=== PATIENT | male | born 1975 | race Caucasian/White ===

== ENCOUNTER 2017-04-28 00:40 | Emergency (ER) | payer BC, OTHER ==
[~2017-04-28] VITALS: Ht 182.9 cm; Wt 105.9 kg
[~2017-04-28 00:40] MED LIST: FLAGYL500 MG PO; HYDROCODON-ACE1 EAC7 PO; INDOCIN50 MG PO; LORTAB 5-500 T1 EACH PO; NAPROXEN500 MG PO; NEXIUM20 MG PO; NOHOMEMEDS
[2017-04-28 00:48] VITALS: BP 125/82
[2017-04-28 01:07] LABS: HEMATOCRIT 43.3 % (38.0-50.0); MCH 29.9 PG (29.0-34.0); MCHC 33.9 G/DL (30.0-36.0); MEAN PLAT.VOLUME 11.5 uM^3 (9.0-12.4); PLATELET COUNT 212 K/uL (156-360); RBC DIS.WIDTH-CV 13.1 % (11.8-14.6); RBC DIS.WIDTH-SD 42.2 % (39-53); RED BLOOD COUNT 4.92 M/uL (4.00-5.50); WHITE BLOOD COUNT 8.9 K/uL (4.1-10.2)
[2017-04-28 01:16] LABS: CHLORIDE 104 mEq/L (99-109); SODIUM 139 mEq/L (136-147)
[2017-04-28 01:18] LABS: GLUCOSE 98 mg/dL (70-99)
[2017-04-28 01:19] LABS: ANION GAP 12 MEQ/L (2-14)
[2017-04-28 01:21] LABS: GFR ESTIMATE (CALCULATED) > 59 mL/min/ (58.99-99999)
[2017-04-28 01:22] LABS: UREA NITROGEN (BUN) 20 mg/dL (9-23)
[2017-04-28 01:29] LABS: TROP-I INTERPRETATION NEGATIVE; TROPONIN-I < 0.01 ng/mL (0.0-0.30)
== END 2017-04-28 02:48 | disposition left against medical advice (07) ==
LOC: EME 00:40
DX: R07.9 Chest pain, unspecified (principal); M54.9 Dorsalgia, unspecified; Z53.21 Procedure and treatment not carried out due to patient leaving prior to being seen by health care provider
CPT/HCPCS: 71020; 80048; 84484; 85027; 93005